=== PATIENT | female | born 1990 | race American Indian/Alaskan Native ===

== ENCOUNTER 2016-07-19 16:43 | Emergency (ER) | payer SELFPAY ==
[2016-07-19 17:29] VITALS: BP 128/97
[2016-07-19] MEDS ORDERED: NACL 0.9% 1000 ML 1,000 ML IV ONE (17:29)
[2016-07-19 18:31] LABS: Basophils % (Auto) 0.7 % (0.0-1.8); Eosinophils % (Auto) 1.1 % (0.0-4.3); Hematocrit 37.4 % (30.3-42.9); Hemoglobin 12.7 gm/dl (10.1-14.3); Mean Corpuscular HGB Conc 34 % (30-34); Mean Corpuscular Hemoglobin 33 pg (28-32); Mean Corpuscular Volume 97 fl (79-97); Platelet Count 258 K/mm3 (140-440); Red Blood Count 3.84 M/mm3 (3.65-5.03); Red Cell Distribution Width 14.5 % (13.2-15.2); White Blood Count 7.9 K/mm3 (4.5-11.0)
[2016-07-19 18:42] LABS: INR 0.92 (0.87-1.13); Partial Thromboplastin Time 30.4 Sec. (24.2-36.6)
[2016-07-19 18:47] LABS: Alanine Aminotransferase 8 units/L (7-56); Albumin 3.7 g/dL (3.9-5); Albumin/Globulin Ratio 1.2 %; Alkaline Phosphatase 62 units/L (35-129); Anion Gap 16 mmol/L; Bilirubin,Total 0.2 mg/dL (0.1-1.2); Blood Urea Nitrogen 8 mg/dL (7-17); Calcium 8.4 mg/dL (8.4-10.2); Carbon Dioxide 22 mmol/L (22-30); Chloride 104.1 mmol/L (98-107); Glucose 87 mg/dL (65-100); Lipase 23 units/L (13-60); Potassium 3.7 mmol/L (3.6-5.0); Sodium 138 mmol/L (137-145); Total Protein 6.9 g/dL (6.3-8.2)
--- NOTE | 2016-07-21 14:05 | ED Elopement Review ---
ED Pt Elopement review - Results review Lab results: Laboratory Tests 07/19/16 07/19/16 07/19/16 18:01 18:01 18:01 WBC 7.9 RBC 3.84 Hgb 12.7 Hct 37.4 MCV 97 MCH 33 H MCHC 34 RDW 14.5 Plt Count 258 Lymph % (Auto) 34.3 [place] % (Auto) 7.3 Eos % (Auto) 1.1 Baso % (Auto) 0.7 Lymph # 2.7 [place] # 0.6 Eos # 0.1 Baso # 0.1 Seg Neutrophils % 56.6 Seg Neutrophils # 4.5 PT 12.3 INR 0.92 APTT 30.4 Sodium 138 Potassium 3.7 Chloride 104.1 Carbon Dioxide 22 Anion Gap 16 BUN 8 Creatinine 0.5 L Estimated GFR > 60 BUN/Creatinine Ratio 16.00 Glucose 87 Calcium 8.4 Total Bilirubin 0.2 AST 10 ALT 8 Alkaline Phosphatase 62 Total Protein 6.9 Albumin 3.7 L Albumin/Globulin Ratio 1.2 Lipase 23 Blood Type Antibody Screen 07/19/16 18:05 WBC RBC Hgb Hct MCV MCH MCHC RDW Plt Count Lymph % (Auto) [place] % (Auto) Eos % (Auto) Baso % (Auto) Lymph # [place] # Eos # Baso # Seg Neutrophils % Seg Neutrophils # PT INR APTT Sodium Potassium Chloride Carbon Dioxide Anion Gap BUN Creatinine Estimated GFR BUN/Creatinine Ratio Glucose Calcium Total Bilirubin AST ALT Alkaline Phosphatase Total Protein Albumin Albumin/Globulin Ratio Lipase Blood Type A POSITIVE Antibody Screen Negative - Call Back decision Pt Call Back Decision: No action required
== END 2016-07-20 00:45 | disposition left against medical advice (07) ==
LOC: ED 16:43
DX: K92.0 Hematemesis (principal); R42 Dizziness and giddiness; R10.9 Unspecified abdominal pain; F17.200 Nicotine dependence, unspecified, uncomplicated; Z53.21 Procedure and treatment not carried out due to patient leaving prior to being seen by health care provider
CPT/HCPCS: 36415; 80053; 83690; 85025; 85610; 85730; 86850; 86900; 86901; 93005; 93010